=== PATIENT | male | born 1960 | race African-American/Black ===

== ENCOUNTER 2019-08-05 20:23 | Emergency (ER) | payer OTHER ==
[2019-08-05 21:38] LABS: Hemoglobin 11.9 g/dL (14.0-18.0); Platelet Count 184 thou/uL (130-400); Red Blood Cell (RBC) Count 4.57 mill/uL (4.70-6.10); White Blood Cell (WBC) Count 10.5 thou/uL (4.8-10.8)
--- NOTE | 2019-08-05 21:46 | RAD ---
RIGHT HIP: 08/05/19 Two views. HISTORY: Trauma. FINDINGS/IMPRESSION: Degenerative changes of the hip. Slight flattening of the femoral head with subchondral cystic change s. No fracture or acute abnormality. POS: OFF
--- NOTE | 2019-08-05 21:47 | RAD ---
AP CHEST: 08/05/19 HISTORY: Trauma. Lungs are clear. Heart and mediastinum unremarkable. The bony thorax appears intact. IMPRESSION: No acute abnormality. POS: OFF
[2019-08-05 21:52] LABS: #Eosinphils 0.2 thou/uL (0.0-0.7); #Lymphocytes 4.2 thou/uL (1.20-3.40); #Monocytes 0.8 thou/uL (0.11-0.59); #Neutrophils 5.2 thou/uL (1.40-6.50); %Basophils 0.4 % (0.0-1.0); %Eosinophils 2.1 % (0.0-10.0); %Neutrophils 49.6 % (42.0-75.0); Hypochromia SLIGHT = 6-15 cells (100X) (0-5/hpf); MDiff Complete? YES; Mean Corpuscular HGB CONC 34.8 g/dL (32.0-36.0); Mean Corpuscular Hemoglobin 26.1 pg (27.0-31.0); Mean Corpuscular Volume 74.9 fL (78.0-98.0); Mean Platelet Volume 9.8 fL (7.4-10.4); Microcytosis SLIGHT = 6-15 cells (100X) (0-5/hpf); Platelet Morphology Comment Appears Adequate; RBC Distribution Width 17.3 % (11.5-14.5)
[2019-08-05 21:57] LABS: ALT (SGPT) 16 U/L (8-55); AST (SGOT) 29 U/L (5-34); Albumin 4.3 g/dL (3.5-5.0); Alkaline Phosphatase 53 U/L (40-110); Anion Gap 16 mmol/L (10-20); BUN (Urea Nitrogen) 16 mg/dL (8.4-25.7); Calc. Creatinine Clearance 0 mL/min (70-130); Carbon Dioxide 20 mmol/L (22-29); Chloride 106 mmol/L (98-107); Estimated GFR-MDRD Greater than 90; Globulin 2.7 g/dL (2.4-3.5); Glucose 80 mg/dL (70-105); Potassium 3.7 mmol/L (3.5-5.1); Sodium 138 mmol/L (136-145)
[2019-08-05] MEDS ORDERED: HYDROcodone/Acetaminophen 5/325 mg Tablet ONE (22:00)
--- NOTE | 2019-08-05 22:09 | CT ---
CT HEAD WITHOUT CONTRAST: 08/05/19 HISTORY: Trauma. Ventricles have normal size and position. No evidence of intracranial hemorrhage. No mass or edema. S inuses are clear. IMPRESSION: No acute abnormality. POS: OFF
--- NOTE | 2019-08-05 22:10 | CT ---
CT CERVICAL SPINE: 08/05/19 HISTORY: Trauma. 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 No ev idence of acute fracture. POS: OFF
[2019-08-06] MEDS ORDERED: Ketorolac Tromethamine 30 MG/ML VIAL ONE (00:55)
== END 2019-08-06 01:10 | disposition home or self-care (01) ==
LOC: ERS 20:23
DX: S09.90XA Unspecified injury of head, initial encounter (principal); M25.551 Pain in right hip; D57.1 Sickle-cell disease without crisis; I10 Essential (primary) hypertension; F17.210 Nicotine dependence, cigarettes, uncomplicated; Z79.899 Other long term (current) drug therapy; V49.9XXA Car occupant (driver) (passenger) injured in unspecified traffic accident, initial encounter
CPT/HCPCS: 70450; 71045; 72125; 80053; 85025; 96372; J1885